=== PATIENT | female | born 1945 | race Caucasian/White ===

== ENCOUNTER 2017-08-19 21:55 | Observation (INO) | payer MEDICARE, BC ==
[2017-08-19 22:17] LABS: BASOPHILS % (AUTO) 1 % (0-3); EOSINOPHILS % (AUTO) 2 % (0-9); HEMATOCRIT 45 % (35-47); MEAN CORPUSCULAR HGB CONC 33.4 gm/dl (32.0-36.0); MEAN CORPUSCULAR VOLUME 95 fL (81-99); NEUTROPHILS % (AUTO) 41.3 % (37-80)
[2017-08-19 22:43] LABS: ALBUMIN 3.5 gm/dl (3.4-5.0); ALT 19 IU/L (14-63); CALCIUM 9.1 mg/dl (8.5-10.1); GLOM FILT RATE 54 mL/min (>60); SODIUM 143 mMol/L (136-145); THYROID STIMULATING HORMONE 6.195 uIU/ml (0.358-3.740)
[2017-08-19] MEDS ORDERED: ONDANSETRON HCL 4 MG/2 ML SOL IV ONE (22:54)
[2017-08-19] MEDS ORDERED: SODIUM CHLORIDE 0.9% 1000ML 1,000 ML IV ONE (22:54)
[2017-08-19] MEDS ORDERED: ONDANSETRON HCL 4 MG/2 ML SOL ONE (22:56)
[2017-08-19] MEDS ORDERED: SODIUM CHLORIDE 0.9% FLUSH 10 ML SOL IV PRN (23:01)
[2017-08-19] MEDS ORDERED: PANTOPRAZOLE SODIUM 40 MG ECT PO ONE ×2 (23:11→23:12)
[2017-08-19 23:20] LABS: APPEARANCE,URINE Clear; BILIRUBIN,URINE NEGATIVE (NEGATIVE); COLOR,URINE Yellow; GLUCOSE, URINE (UA) NEGATIVE (NEGATIVE); KETONES,URINE NEGATIVE (NEGATIVE); LEUKOCYTE ESTERASE ,URINE NEGATIVE (NEGATIVE); NITRATE,URINE NEGATIVE (NEGATIVE); OCCULT BLOOD,URINE 1+ (NEG-TRACE); PH,URINE 5.5; UROBILINOGEN,URINE 0.2 (0.2-1.0 EU)
[2017-08-19 23:58] LABS: WBC,URINE 0-4 (0-5AV/HPF)
[2017-08-20] MEDS ORDERED: ALBUTEROL/IPRATROPIUM 1 VIAL SOL INH PRN (01:12)
[2017-08-20] MEDS ORDERED: SODIUM CHLORIDE 0.9% 100 ML SOL IV SCH (01:15)
[2017-08-20] MEDS ORDERED: ZOLPIDEM TARTRATE 5 MG TAB PO PRN (01:16)
[2017-08-20] MEDS: SODIUM CHLORIDE 0.9% 1000ML 1,000 ML IV SCH ×2 (02:19→11:03)
[2017-08-20 07:24] LABS: CALCIUM 8.5 mg/dl (8.5-10.1); GLOM FILT RATE 71 mL/min (>60); POTASSIUM 4.3 mMol/L (3.5-5.1); SODIUM 145 mMol/L (136-145)
[2017-08-20 07:57] VITALS: BP 113/59; TEMP 98.4
[2017-08-20 08:57] LABS: BASOPHILS % (AUTO) 1 % (0-3); EOSINOPHILS % (AUTO) 1 % (0-9); HEMATOCRIT 42 % (35-47); MEAN CORPUSCULAR HGB CONC 32.6 gm/dl (32.0-36.0); MEAN CORPUSCULAR VOLUME 96 fL (81-99); MONOCYTES % (AUTO) 9.2 % (0-12); NEUTROPHILS % (AUTO) 45.6 % (37-80)
[2017-08-20] MEDS ORDERED: PREDNISONE 10 MG TAB PO ONE (09:00)
[2017-08-20 09:12] VITALS: PULSE 61; RESP 22; O2SAT 95
[2017-08-20] MEDS ORDERED: PREDNISONE 20 MG TAB ONE (11:08)
[2017-08-20] MEDS ORDERED: OXYCODONE HYDROCHLORIDE 5 MG TAB PO PRN (12:10)
[2017-08-20] MEDS ORDERED: ALBUTEROL NEB SOL 2.5MG/3ML 1 VIAL SOL NEB PRN (12:10)
[2017-08-20] MEDS ORDERED: ALBUTEROL HFA 60 PUFF/INHALER INH PRN (12:10)
[2017-08-20] MEDS ORDERED: Non-Formulary Medication MISC (Budesonide/Formoterol 160/4.5 2 PUFF) INH SCH (21:00)
[2017-08-21] MEDS ORDERED: LEVOTHYROXINE SODIUM 50 MCG TAB PO SCH (07:50)
[2017-08-21] MEDS ORDERED: LOSARTAN POTASSIUM 50 MG TAB PO SCH (09:00)
== END 2017-08-20 15:15 | disposition home or self-care (01) | DRG 312 ==
LOC: ED 21:55 → ACUTE CARE 08-20 01:05
PROVIDERS: ADMIT Family Medicine; ATTEND Family Medicine
DX: R55 Syncope and collapse (principal); R00.1 Bradycardia, unspecified; J44.1 Chronic obstructive pulmonary disease with (acute) exacerbation; R11.0 Nausea; E03.9 Hypothyroidism, unspecified; I10 Essential (primary) hypertension
CPT/HCPCS: 36415; 70450; 71045; 80048; 80053; 81001; 84443; 84484; 85025; 85610; 93005; 93012; 94150; 94640; 99285; J2405; A9270-GY